=== PATIENT | female | born 1995 | race Caucasian/White ===

== ENCOUNTER 2023-01-02 20:48 | Emergency (ER) | payer OTHER ==
--- NOTE | 2023-01-02 21:11 | ERPHSYRPT ---
- History of Present Illness Time Seen by Provider: 01/02/23 21:11 Historian: patient Exam Limitations: no limitations Patient Subjective Stated Complaint: vomiting, diarrhea since 499, pt was seen urgent care in [place] today and was prescribed odt zofran for home Triage Nursing Assessment: pt ambulatory to bed by self, pt alert and oriented x3, pt c/o vomiting, diarrhea, diffuse abd pain since 499, pt seen at urgent care in [place] today and was swabbed for flu and was negative, pt was prescribed odt zofran with no relief, Physician History: Pt c/o vomiting, diarrhea, diffuse abd pain since 499, pt seen at urgent care in [place] today and was swabbed for flu and was negative, pt was prescribed odt zofran with no relief. Location: generalized. Constant. Described as: sharp, cramping Decreased appetite, unable to keep anything down Outdated Mirena in place Denies F/C, CP, EtOH use, vaginal d/c Timing/Duration: today Activities at Onset: none Quality: cramping, sharpness Abdominal Pain Onset Location: generalized abdomen Pain Radiation: no radiation Severity of Pain-Max: severe Severity of Pain-Current: severe Modifying Factors: Improves With: nothing. Worsens With: movement, urinating, vomiting Associated Symptoms: loss of appetite, nausea, vomiting, No fever/chills, No heartburn Previous symptoms: no prior history Allergies/Adverse Reactions: No Known Drug Allergies Allergy (Verified 01/02/23 21:00) Home Medications: Ondansetron [Ondansetron Odt] 8 mg SL 01/02/23 [History] Hx Tetanus, Diphtheria Vaccination/Date Given: Yes Hx Influenza Vaccination/Date Given: Yes Hx Pneumococcal Vaccination/Date Given: No Travel Risk - International Travel Have you traveled outside of the country in past 3 weeks: No - Coronavirus Screening Are you exhibiting any of the following symptoms?: Yes Symptoms: Vomiting/Diarrhea Close contact with a COVID-19 positive Pt in past 14-21 Days: No - Vaccine Status Have you recieved a Covid-19 vaccination: Yes 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: [employer] - Vaccination Dates Date of 2cond Vaccination (if applicable): 2020 - Review of Systems Constitutional: No Symptoms Eyes: No Symptoms Ears, Nose, & Throat: No Symptoms Respiratory: No Symptoms Cardiac: No Symptoms Abdominal/Gastrointestinal: Abdominal Pain, Nausea, Vomiting, Diarrhea, Appetite Changes, No Constipation, No Hematemesis, No Hematochezia, No Melena Genitourinary Symptoms: Frequency, Urgency, No Dysuria, No Hematuria, No Vaginal Discharge, No Vaginal Itching Musculoskeletal: No Symptoms Skin: No Symptoms Neurological: No Symptoms Psychological: No Symptoms Endocrine: No Symptoms Hematologic/Lymphatic: No Symptoms Immunological/Allergic: No Symptoms All Other Systems: Reviewed and Negative - Past Medical History Pertinent Past Medical History: No Neurological History: No Pertinent History ENT History: No Pertinent History Cardiac History: No Pertinent History Respiratory History: No Pertinent History Endocrine Medical History: No Pertinent History Musculoskeletal History: No Pertinent History GI Medical History: No Pertinent History History: No Pertinent History Psycho-Social History: No Pertinent History Female Reproductive Disorders: No Pertinent History - Past Surgical History Past Surgical History: Yes Neuro Surgical History: No Pertinent History Cardiac: No Pertinent History Respiratory: No Pertinent History Gastrointestinal: No Pertinent History Genitourinary: No Pertinent History Musculoskeletal: No Pertinent History Female Surgical History: No Pertinent History Other Surgical History: breast augmentation - Social History Smoking Status: Never smoker Exposure to second hand smoke: No Drug Use: none Patient Lives Alone: No - Female History Hx Last Menstrual Period: 12/12/22 Hx Now: No - Nursing Vital Signs Nursing Vital Signs: Initial Vital Signs Temperature 99.3 F 01/02/23 21:11 Pulse Rate 106 H 01/02/23 21:11 Respiratory Rate 17 01/02/23 21:11 Blood Pressure 124/91 01/02/23 21:11 O2 Sat by Pulse Oximetry 99 01/02/23 21:11 Pain Scale Pain Intensity 7 - Physical Exam General Appearance: mild distress, thin Eye Exam: eyes nml inspection Ears, Nose, Throat Exam: normal ENT inspection Neck Exam: normal inspection, non-tender, supple, full range of motion Respiratory Exam: normal breath sounds, lungs clear, airway intact, No respiratory distress Cardiovascular Exam: normal heart sounds, tachycardia, capillary refill <2 sec, No edema Gastrointestinal/Abdomen Exam: soft, normal bowel sounds, tenderness, No distention, No mass, No guarding, No rebound Back Exam: normal inspection, No CVA tenderness Extremity Exam: normal inspection, normal range of motion, No swelling, No tenderness Neurologic Exam: alert, oriented x 3, cooperative Skin Exam: warm, dry, pale SpO2 Interpretation: normal O2 Delivery: Room Air - Course Nursing assessment & vital signs reviewed: Yes - CT Exams Abdomen/Pelvis CT Interpretation: Negative, Tele-radiologist Report Ordered Tests: Active Orders 24 hr Category Date Time Status IV Insertion STAT Care 01/02/23 21:20 Completed NPO (ED) STAT Care 01/02/23 21:20 Completed ABDOMEN AND PELVIS W CONTRAST [CT] Stat Exams 01/02/23 21:21 Completed CBC W DIFF Stat Lab 01/02/23 21:37 Completed CMP Stat Lab 01/02/23 21:37 Completed CULTURE,URINE Stat Lab 01/02/23 21:23 Received HCG QUALITATIVE, URINE Stat Lab 01/02/23 21:37 Completed LIPASE Stat Lab 01/02/23 21:37 Completed Lactic Acid Stat Lab 01/02/23 21:24 Completed UA W/RFX UR CULTURE Stat Lab 01/02/23 21:23 Completed Medication Summary Discontinued Medications Generic Name Dose Route Start Last Admin Trade Name Freq PRN Reason Stop Dose Admin Droperidol 1.25 mg 01/02/23 21:20 01/02/23 21:31 Droperidol 5 Mg/2 Ml Vial IV 01/02/23 21:21 1.25 mg STAT ONE Administration Droperidol Confirm 01/02/23 21:26 Droperidol 5 Mg/2 Ml Vial Administered 01/02/23 21:27 Dose 5 mg .ROUTE .STK-MED ONE Sodium Chloride 1,000 mls @ 999 mls/hr 01/02/23 21:20 01/02/23 23:00 Sodium Chloride 0.9% 1000 Ml IV 01/02/23 22:20 Infused .Q1H1M STA Infusion Sodium Chloride Confirm 01/02/23 21:26 Sodium Chloride 0.9% 1000 Ml Administered 01/02/23 21:27 Dose 1,000 mls @ ud .ROUTE .STK-MED ONE Lab/Rad Data: Laboratory Result Diagrams 01/02/23 21:37 01/02/23 21:37 Laboratory Results 01/02/23 01/02/23 01/02/23 Range/Units 21:37 21:37 21:37 WBC 10.7 H (4.0-10.5) x10^3/uL RBC 5.45 H (4.1-5.4) x10^6/uL Hgb 16.6 H (12.0-16.0) g/dL Hct 47.7 H (35-47) % MCV 87.5 (78-100) fL MCH 30.5 (26-32) pg MCHC 34.8 (32-36) g/dL RDW 11.8 (11.5-14.0) % Plt Count 275 (150-450) x10^3/uL MPV 11.0 (7.5-11.0) fL Gran % 85.3 H (36.0-66.0) % Immature Gran % (Auto) 0.4 (0.00-0.4) % Nucleat RBC Rel Count 0.0 (0.00-0.1) % Eos # (Auto) 0.13 (0-0.5) x10^3/uL Immature Gran # (Auto) 0.04 H (0.00-0.03) x10^3u/L Absolute Lymphs (auto) 0.35 L (1.0-4.6) x10^3/uL Absolute Monos (auto) 1.02 (0.0-1.3) x10^3/uL Absolute Nucleated RBC 0.00 (0.00-0.01) x10^3u/L Lymphocytes % 3.3 L (24.0-44.0) % Monocytes % 9.5 (0.0-12.0) % Eosinophils % 1.2 (0.00-5.0) % Basophils % 0.3 (0.0-0.4) % Absolute Granulocytes 9.14 H (1.4-6.9) x10^3/uL Basophils # 0.03 (0-0.4) x10^3/uL Sodium 140 (137-145) mmol/L Potassium 3.9 (3.5-5.1) mmol/L Chloride 100 (98-107) mmol/L Carbon Dioxide 24 (22-30) mmol/L Anion Gap 19.8 H (5-15) MEQ/L BUN 22 H (7-17) mg/dL Creatinine 0.71 (0.52-1.04) mg/dL Estimated GFR > 60.0 ML/MIN Glucose 106 (74-106) mg/dL Lactic Acid (0.4-2.0) Calcium 9.7 (8.4-10.2) mg/dL Total Bilirubin 1.60 H (0.2-1.3) mg/dL AST 39 H (14-36) U/L ALT 25 (0-35) U/L Alkaline Phosphatase 85 (38-126) U/L Serum Total Protein 9.4 H (6.3-8.2) g/dL Albumin 5.4 H (3.5-5.0) g/dL Lipase 42 (23-300) U/L Urine Color (Yellow) Urine Appearance (Clear) Urine pH (4.6-8.0) Ur Specific [place] (1.005-1.030) Urine Protein (Negative) Urine Glucose (UA) (Negative) mg/dL Urine Ketones (Negative) Urine Blood (Negative) Urine Nitrite (Negative) Urine Bilirubin (Negative) Urine Urobilinogen (0.2) mg/dL Ur Leukocyte Esterase (Negative) U Hyaline Cast (Auto) (0-2) /LPF Urine Microscopic RBC (0-5) /HPF Urine Microscopic WBC (0-5) /HPF Ur Epithelial Cells (None Seen) /HPF Urine Bacteria (None Seen) /HPF Urine Culture Reflexed (NO) Urine HCG, Qual NEGATIVE (NEGATIVE) 01/02/23 01/02/23 Range/Units 21:24 21:23 WBC (4.0-10.5) x10^3/uL RBC (4.1-5.4) x10^6/uL Hgb (12.0-16.0) g/dL Hct (35-47) % MCV (78-100) fL MCH (26-32) pg MCHC (32-36) g/dL RDW (11.5-14.0) % Plt Count (150-450) x10^3/uL MPV (7.5-11.0) fL Gran % (36.0-66.0) % Immature Gran % (Auto) (0.00-0.4) % Nucleat RBC Rel Count (0.00-0.1) % Eos # (Auto) (0-0.5) x10^3/uL Immature Gran # (Auto) (0.00-0.03) x10^3u/L Absolute Lymphs (auto) (1.0-4.6) x10^3/uL Absolute Monos (auto) (0.0-1.3) x10^3/uL Absolute Nucleated RBC (0.00-0.01) x10^3u/L Lymphocytes % (24.0-44.0) % Monocytes % (0.0-12.0) % Eosinophils % (0.00-5.0) % Basophils % (0.0-0.4) % Absolute Granulocytes (1.4-6.9) x10^3/uL Basophils # (0-0.4) x10^3/uL Sodium (137-145) mmol/L Potassium (3.5-5.1) mmol/L Chloride (98-107) mmol/L Carbon Dioxide (22-30) mmol/L Anion Gap (5-15) MEQ/L BUN (7-17) mg/dL Creatinine (0.52-1.04) mg/dL Estimated GFR ML/MIN Glucose (74-106) mg/dL Lactic Acid 1.7 (0.4-2.0) Calcium (8.4-10.2) mg/dL Total Bilirubin (0.2-1.3) mg/dL AST (14-36) U/L ALT (0-35) U/L Alkaline Phosphatase (38-126) U/L Serum Total Protein (6.3-8.2) g/dL Albumin (3.5-5.0) g/dL Lipase (23-300) U/L Urine Color Yellow (Yellow) Urine Appearance Clear (Clear) Urine pH 5.5 (4.6-8.0) Ur Specific [place] >=1.030 A (1.005-1.030) Urine Protein Trace A (Negative) Urine Glucose (UA) Negative (Negative) mg/dL Urine Ketones 40 A (Negative) Urine Blood Trace (Negative) Urine Nitrite Negative (Negative) Urine Bilirubin Negative (Negative) Urine Urobilinogen 0.2 (0.2) mg/dL Ur Leukocyte Esterase Trace A (Negative) U Hyaline Cast (Auto) NONE SEEN (0-2) /LPF Urine Microscopic RBC 0-2 (0-5) /HPF Urine Microscopic WBC 11-20 A (0-5) /HPF Ur Epithelial Cells Many A (None Seen) /HPF Urine Bacteria Rare A (None Seen) /HPF Urine Culture Reflexed YES (NO) Urine HCG, Qual (NEGATIVE) - Progress Progress: improved Progress Note: Pain improved w/ Droperidol. Given 1L NS bolus. Labs remarkable for elevated total bilirubin and AST. CT abd/pelvis neg for acute pathology. UA did show some evidence of UTI and due to her constellation of sxs I decided to treat as a UTI w/ Macrobid. Discussed importance of f/u to w/u bilirubin and AST, patient voiced understanding. - Departure Departure Disposition: Home Clinical Impression: UTI (urinary tract infection), Elevated transaminase level, Total bilirubin, elevated, Nausea & vomiting Condition: Good Critical Care Time: No Referrals: Provider,Unknown [NON-STAFF PHY W/O PRIVILEGES] - Follow up/PCP as directed Instructions: Severe Abdominal Pain, Adult (DC) Additional Instructions: F/U w/ PCP to evaluate elevated bilirubin and AST. Prescriptions: Prochlorperazine Maleate [Compazine] 10 mg PO Q6H PRN 5 Days #20 tablet MDD 40mg PRN Reason: Nausea/Vomiting Nitrofurantoin Monohyd/M-Cryst [Macrobid 100 mg Capsule] 100 mg PO BID 5 Days #10 cap
[2023-01-02] MEDS ORDERED: Sodium Chloride 0.9% 1000 ML 1,000 ML IV STA (21:20)
[2023-01-02] MEDS ORDERED: Sodium Chloride 0.9% 1000 ML 1,000 ML ONE (21:26)
[2023-01-02 21:40] LABS: Absolute Neutrophil Ct (ANC) 9.14 x10^3/uL (1.4-6.9); BASOPHIL % 0.3 % (0.0-0.4); Basophil (Absolute #) 0.03 x10^3/uL (0-0.4); Eosinophil % 1.2 % (0.00-5.0); Eosinophil (Absolute #) 0.13 x10^3/uL (0-0.5); Hematocrit 47.7 % (35-47); Hemoglobin 16.6 g/dL (12.0-16.0); IMMATURE GRAN # 0.04 x10^3u/L (0.00-0.03); IMMATURE GRAN % 0.4 % (0.00-0.4); Lymphocyte (Absolute #) 0.35 x10^3/uL (1.0-4.6); Lymphocytes % 3.3 % (24.0-44.0); Mean Cell Volume 87.5 fL (78-100); Mean Corpuscular Hemoglobin 30.5 pg (26-32); Mean Corpuscular Hgb Concent. 34.8 g/dL (32-36); Monocyte (Absolute #) 1.02 x10^3/uL (0.0-1.3); Monocytes % 9.5 % (0.0-12.0); Neutrophil % 85.3 % (36.0-66.0); Platelet Count 275 x10^3/uL (150-450); Red Blood Count 5.45 x10^6/uL (4.1-5.4); Red Cell Distribution Width 11.8 % (11.5-14.0); White Blood Count 10.7 x10^3/uL (4.0-10.5)
[2023-01-02 21:46] LABS: HCG URINE TEST NEGATIVE (NEGATIVE)
[2023-01-02 21:48] LABS: Appearance Clear (Clear); Bacteria Rare /HPF (None Seen); Bilirubin Negative (Negative); Blood Trace (Negative); Epithelial Cells Many /HPF (None Seen); Glucose, Urine Negative (Negative); Hyaline Casts NONE SEEN /LPF (0-2); Ketones 40 (Negative); Leukocyte Esterase Trace (Negative); Nitrite Negative (Negative); Ph 5.5 (4.6-8.0); Protein,Urine Dip Trace (Negative); RBC 0-2 /HPF (0-5); Specific Gravity >=1.030 (1.005-1.030); Urobilinogen 0.2 mg/dL (0.2)
[2023-01-02 21:56] LABS: ALBUMIN 5.4 g/dL (3.5-5.0); ALKALINE PHOSPHATASE 85 U/L (38-126); ANION GAP 19.8 MEQ/L (5-15); BLOOD UREA NITROGEN 22 mg/dL (7-17); CHLORIDE 100 mmol/L (98-107); Calcium 9.7 mg/dL (8.4-10.2); Carbon Dioxide 24 mmol/L (22-30); Creatinine 1 0.71 mg/dL (0.52-1.04); EST GLOMERULAR FILTRATION RATE > 60.0 ML/MIN; Glucose 106 mg/dL (74-106); LIPASE 42 U/L (23-300); Potassium 3.9 mmol/L (3.5-5.1); SGOT/AST 39 U/L (14-36); SGPT/ALT 25 U/L (0-35); SODIUM 140 mmol/L (137-145); Total Protein 9.4 g/dL (6.3-8.2)
[2023-01-02 21:56] LABS: ADD URINE CULTURE? YES (NO)
[2023-01-02 23:04] VITALS: BP 114/68
--- NOTE | 2023-01-02 23:57 | XRAY ---
CLINICAL HISTORY:Abdominal pain; COMPARISON:None; TECHNIQUES:Contiguous multi-slice CT examinations of the abdomen and pelvis were acquired in the axial plane with coronal and sagittal reconstruction after the administration of intravenous contrast; FINDINGS: Bilateral breast implants are seen. The liver is normal in contour and attenuation. No evidence of intrahepatic biliary dilatation is seen. CBD and portal vein are normal. The gall bladder is regular in contour and attenuation. No evidence of calculi. The pancreas is normal in shape and contour. Peripancreatic planes appear normal. No evidence of calcification or pancreatic duct dilatation is seen. The spleen is normal in contour and attenuation. Adrenals are normal. Both kidneys are normal in size, shape and attenuation. No calculi / No hydronephrosis. Stomach and bowel loops are normal. The appendix is not seen. Aorta and IVC are normal. The urinary bladder is normal. The uterus is anteverted and shows an IUD in the endometrial cavity. Rectum and perirectal fat planes are normal. The bone window setting shows normal bones. IMPRESSION: Grossly unremarkable study. Electronically Signed by: Umer Edwards MD. (01/02/2023 22:50:48 MARBLE CARVER)
[2023-01-03 00:10] VITALS: PULSE 98; O2SAT 100
== END 2023-01-03 00:20 | disposition home or self-care (01) ==
LOC: ED 20:48
DX: N39.0 Urinary tract infection, site not specified (principal); R74.01 Elevation of levels of liver transaminase levels; E80.6 Other disorders of bilirubin metabolism; R11.2 Nausea with vomiting, unspecified; R19.7 Diarrhea, unspecified; R10.84 Generalized abdominal pain
CPT/HCPCS: 36000; 36415; 74177; 80053; 81001; 81025; 83605; 83690; 85025; 87086; 96360; 96374; 99284